=== PATIENT | male | born 1945 | race Caucasian/White ===

== ENCOUNTER 2017-06-30 07:10 | Day surgery (SDC) | payer MEDICARE, SELFPAY ==
[2017-06-29 12:28] VITALS: BMI 55.1
[2017-06-30] VITALS (7 sets, daily range): BP systolic 148–168; BP diastolic 71–86; PULSE 64–76; RESP 18; TEMP 36.2–36.3; O2SAT 95–100
== END 2017-06-30 09:38 | disposition home or self-care (01) ==
LOC: OR 07:14
PROVIDERS: Family Provider Internal Medicine; PCP Internal Medicine; Visit Provider Ophthalmology
DX: H26.9 Unspecified cataract (principal)
CPT/HCPCS: 66984; V2632

== ENCOUNTER → 2019-12-20 13:33 | Outpatient (CLI) | payer OTHER, SELFPAY | PROVIDERS: PCP Internal Medicine; Visit Provider Internal Medicine | DX: J44.9 Chronic obstructive pulmonary disease, unspecified (principal) | CPT/HCPCS: 94060; 94727; 94729 ==